=== PATIENT | male | born 1965 | race African-American/Black ===

== ENCOUNTER 2018-05-11 11:22 | Emergency (ER) | payer MEDICARE ==
[2018-05-11 11:48] VITALS: BP 151/83
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
[2018-05-11 13:13] LABS: APPEARANCE,URINE SLIGHTLY-CLOUDY; BILIRUBIN,URINE NEGATIVE (NEGATIVE); COLOR,URINE YELLOW; GLUCOSE, URINE NEGATIVE (NEGATIVE); KETONES,URINE NEGATIVE (NEGATIVE); LEUKOCYTE ESTERASE,URINE TRACE (NEGATIVE); NITRITE,URINE NEGATIVE (NEGATIVE); PROTEIN,URINE NEGATIVE (NEGATIVE); URINE SPECIFIC GRAVITY 1.021; UROBILINOGEN,URINE NEGATIVE mg/dL (<2.0)
== END 2018-05-11 13:48 | disposition home or self-care (01) ==
LOC: ER 11:22
DX: N30.01 Acute cystitis with hematuria (principal); I10 Essential (primary) hypertension; M54.5 Low back pain; G89.29 Other chronic pain; Z87.891 Personal history of nicotine dependence; J44.9 Chronic obstructive pulmonary disease, unspecified
CPT/HCPCS: 81001; 87086; 87088; 99283